=== PATIENT | female | born 1990 | race African-American/Black ===

== ENCOUNTER 2020-10-21 14:02 | Emergency (ER) | payer OTHER ==
[2020-10-21 16:28] LABS: Absolute Lymphocytes (CBC) 1.7 K/uL (0.7-4.9); Hematocrit 38.1 % (36.0-45.0); MPV 10.8 fL (7.6-11.3); RBC Red Blood Cell Count 3.98 M/uL (3.86-4.86)
[2020-10-21] MEDS ORDERED: MORPHINE 4 MG/ML SYR ONE ×2 (16:29→18:18)
[2020-10-21] MEDS ORDERED: ONDANSETRON 4 MG/2 ML VIAL ONE (16:30)
[2020-10-21 16:48] LABS: ALT/SGPT 19 U/L (12-78); AST/SGOT 18 U/L (15-37); Albumin 4.1 g/dL (3.4-5.0); Alkaline Phosphatase 106 U/L (45-117); BUN Blood Urea Nitrogen 8 mg/dL (7-18); Bicarbonate 21 mmol/L (21-32); Bilirubin Direct 0.2 mg/dL (0-0.2); Bilirubin Total 1.2 mg/dL (0.2-1.0); Glucose Level 92 mg/dL (74-106); Lipase 26 U/L (73-393); Potassium 3.4 mmol/L (3.5-5.1); Protein, Total 8.5 g/dL (6.4-8.2); Sodium Level 137 mmol/L (136-145)
[2020-10-21] MEDS ORDERED: METHYLPREDNISOLONE 125 MG INJ ONE (18:02)
[2020-10-21] MEDS ORDERED: DIPHENHYDRAMINE 50 MG/ML VIAL ONE (18:02)
[2020-10-21 18:13] LABS: Urine Blood NEGATIVE (NEG); Urine Glucose NEGATIVE (NEG); Urine Protein 1+ (NEG)
--- NOTE | 2020-10-21 18:29 | RAD REPORT ---
EXAM DESCRIPTION: CT - Abdomen Pelvis W Contrast - 10/21/2020 6:04 pm CLINICAL HISTORY: Abdominal pain COMPARISON: none. TECHNIQUE: Computed axial tomography of the abdomen pelvis was obtained. 100 cc Isovue-300 was admin istered intravenously. Oral contrast was not requested which limits evaluation of bowel. All CT scans are performed using dose optimization technique as appropriate and may include automated exposure control or mA/KV adjustment according to patient size. FINDINGS: A 3 millimeter nodule right lower lobe. The liver, spleen, pancreas, adrenal and kidneys appear unremarkable. There is no evidence of diverticulitis. Diastases of the rectus abdominis muscle sheath 5 centimeters Mild dilatation of several loops of jejunum remainder of the bowel caliber is normal. IMPRESSION: Mild dilatation of several loops of jejunum may indicate an enteritis 3 millimeter right lower lobe nodule. If the patient is high risk then followup CT chest in 6 months would be recommended
--- NOTE | 2020-10-21 19:00 | ER ---
Nurse's Notes [facility] Name: John Campos Age: 29 yrs Sex: Female : 1990 Arrival Date: 10/21/2020 Time: 14:04 Bed 25 Private MD: Diagnosis: Alcohol-induced chronic pancreatitis;Enteritis;Urinary tract infection, site not specified Presentation: 10/21 14:23 Chief complaint: Patient states: LUQ abd pain with N/V/D for 2 days. No fever. States ll1 its a pancreatitis flare-up. Coronavirus screen: Client denies travel out of the [place] in the last 14 days. At this time, the client does not indicate any symptoms associated with coronavirus-19. Ebola Screen: Patient denies travel to an Ebola-affected area in the 21 days before illness onset. Initial Sepsis Screen: Does the patient meet any 2 criteria? HR > 90 bpm. No. Patient's initial sepsis screen is negative. Does the patient have a suspected source of infection? Yes: Acute abdominal pain. Risk Assessment: Do you want to hurt yourself or someone else? Patient reports no desire to harm self or others. Onset of symptoms was September 22, 2020. 14:23 Method Of Arrival: Ambulatory ll1 14:23 Acuity: CALEB 3 ll1 Historical: - Allergies: 14:23 Iodine; ll1 - PMHx: 14:23 Pancreatitis; ll1 - PSHx: 14:23 Cholecystectomy; Appendectomy; ll1 - Immunization history:: Flu vaccine is not up to date. - Social history:: Smoking status: Patient reports the use of cigarette tobacco products, smokes one-half pack cigarettes per day. Screenin:17 Abuse screen: Denies threats or abuse. Denies injuries from another. Nutritional hb screening: No deficits noted. Tuberculosis screening: No symptoms or risk factors identified. Fall Risk None identified. Assessment: 16:02 General: Appears uncomfortable, Behavior is cooperative, crying. Pain: Pain currently hb is 9 out of 10 on a pain scale. 16:02 Neuro: Level of Consciousness is awake, alert, obeys commands, Oriented to person, hb place, time, situation. Cardiovascular: Capillary refill < 3 seconds Patient's skin is warm and dry. Respiratory: Respiratory effort is even, unlabored, Respiratory pattern is regular, symmetrical. GI: Reports upper abdominal pain. : No signs and/or symptoms were reported regarding the genitourinary system. EENT: No signs and/or symptoms were reported regarding the EENT system. Derm: Skin is pink, warm \T\ dry. Musculoskeletal: No signs and/or symptoms reported regarding the musculoskeletal system. 16:52 Reassessment: Patient appears in no apparent distress at this time. Patient and/or hb family updated on plan of care and expected duration. Pain level reassessed. Patient is alert, oriented x 3, equal unlabored respirations, skin warm/dry/pink. 17:40 Reassessment: Patient appears in no apparent distress at this time. Patient and/or hb family updated on plan of care and expected duration. Pain level reassessed. Patient is alert, oriented x 3, equal unlabored respirations, skin warm/dry/pink. 18:31 Reassessment: Patient appears in no apparent distress at this time. Patient and/or hb family updated on plan of care and expected duration. Pain level reassessed. Patient is alert, oriented x 3, equal unlabored respirations, skin warm/dry/pink. Vital Signs: 14:23 BP 155 / 105; Pulse 100; Resp 17; Temp 97.9; Pulse Ox 99% ; Weight 73.48 kg; Height 5 ll1 ft. 4 in. (162.56 cm); Pain 10/10; 16:00 BP 134 / 77; Pulse 68; Resp 16; Pulse Ox 99% on R/A; hb 17:30 BP 122 / 71; Pulse 68; Resp 15; Pulse Ox 99% on R/A; hb 18:30 BP 128 / 74; Pulse 70; Resp 16; Pulse Ox 99% on R/A; hb 14:23 Body Mass Index 27.81 (73.48 kg, 162.56 cm) ll1 ED Course: 14:04 Patient arrived in ED. am2 14:22 Arm band placed on. ll1 14:24 Triage completed. ll1 15:51 Akil Moreau PA is PHCP. jr8 15:51 Salazar Vivar MD is Attending Physician. jr8 16:02 Luna Murray RN is Primary Nurse. hb 16:12 Inserted saline lock: 22 gauge in left antecubital area, using aseptic technique. Blood hb collected. 16:17 Patient has correct armband on for positive identification. Placed in gown. Bed in low hb position. Call light in reach. 16:23 Basic Metabolic Panel Sent. sv 16:23 CBC with Diff Sent. sv 16:23 Hepatic Function Sent. sv 16:23 Lipase Sent. sv 18:59 Abdi Pham MD is Referral Physician. jr8 Administered Medications: 16:16 Drug: morphine 4 mg Route: IVP; Site: left antecubital; hb 17:00 Follow up: Response: No adverse reaction hb 16:16 Drug: Zofran (Ondansetron) 4 mg Route: IVP; Site: left antecubital; hb 17:00 Follow up: Response: No adverse reaction hb Outcome: 19:00 Discharge ordered by . kirill 19:10 Patient left the ED. hb Signatures: Isabela Hills, RN RN Akil Moreau PA PA jr8 Luna Murray RN RN Nelsy Del Castillo am2 Miguel Ángel Rider RN RN ll1
--- NOTE | 2020-10-21 19:01 | EDPHYS ---
Physician Documentation [facility] Name: John Campos Age: 29 yrs Sex: Female : 1990 Arrival Date: 10/21/2020 Time: 14:04 Bed 25 Private MD: ED Physician Salazar Vivar HPI: 10/21 16:23 This 29 yrs old Black Female presents to ER via Ambulatory with complaints of Abdominal jr8 Pain, pancreatitis flare up. 16:23 The patient presents with abdominal pain in the upper abdomen, in the left upper jr8 quadrant. 16:24 Onset: The symptoms/episode began/occurred suddenly, today, and became worse today, jr8 With ETOH ingestion . The symptoms do not radiate. Associated signs and symptoms: Pertinent positives: nausea and vomiting. The symptoms are described as constant, stabbing. The patient has experienced similar episodes in the past, chronically. Patient reports she has pancreatitis as she has had many episodes in the past brought on by ETOH. She reports N/V clear in color. . Historical: - Allergies: 14:23 Iodine; ll1 - PMHx: 14:23 Pancreatitis; ll1 - PSHx: 14:23 Cholecystectomy; Appendectomy; ll1 - Immunization history:: Flu vaccine is not up to date. - Social history:: Smoking status: Patient reports the use of cigarette tobacco products, smokes one-half pack cigarettes per day. ROS: 16:26 Cardiovascular: Negative for chest pain, palpitations, and edema, Respiratory: Negative jr8 for shortness of breath, cough, wheezing, and pleuritic chest pain, Back: Negative for injury and pain, MS/Extremity: Negative for injury and deformity, Skin: Negative for injury, rash, and discoloration, Neuro: Negative for headache, weakness, numbness, tingling, and seizure. 16:26 Abdomen/GI: Positive for abdominal pain, nausea and vomiting. Exam: 16:26 Chest/axilla: Normal chest wall appearance and motion. Nontender with no deformity. jr8 No lesions are appreciated. Cardiovascular: Regular rate and rhythm with a normal S1 and S2. No gallops, murmurs, or rubs. Normal PMI, no JVD. No pulse deficits. Respiratory: Lungs have equal breath sounds bilaterally, clear to auscultation and percussion. No rales, rhonchi or wheezes noted. No increased work of breathing, no retractions or nasal flaring. Neuro: Awake and alert, GCS 15, oriented to person, place, time, and situation. Cranial nerves II-XII grossly intact. Motor strength 5/5 in all extremities. Sensory grossly intact. Cerebellar exam normal. Normal gait. 16:26 Abdomen/GI: Inspection: distension, that is moderate, in the right upper quadrant, left upper quadrant, right lower quadrant and left lower quadrant, Bowel sounds: normal, in all quadrants, Palpation: nontender, in the right upper quadrant, right lower quadrant and left lower quadrant, moderate abdominal tenderness, in the left upper quadrant, involuntary guarding, is elicited in the right upper quadrant and left upper quadrant, Indicators: McBurney's point is not tender, Acosta's sign is negative, Liver: tenderness, is not appreciated. Vital Signs: 14:23 BP 155 / 105; Pulse 100; Resp 17; Temp 97.9; Pulse Ox 99% ; Weight 73.48 kg; Height 5 ll1 ft. 4 in. (162.56 cm); Pain 10/10; 16:00 BP 134 / 77; Pulse 68; Resp 16; Pulse Ox 99% on R/A; hb 17:30 BP 122 / 71; Pulse 68; Resp 15; Pulse Ox 99% on R/A; hb 18:30 BP 128 / 74; Pulse 70; Resp 16; Pulse Ox 99% on R/A; hb 14:23 Body Mass Index 27.81 (73.48 kg, 162.56 cm) ll1 MDM: 15:51 Patient medically screened. [facility] 16:27 Data reviewed: vital signs, nurses notes, lab test result(s), amylase and lipase, jr8 electrolytes, urinalysis. Data interpreted: monitoring manager: rate is 100 beats/min, rhythm is normal sinus rhythm, Pulse oximetry: on room air is 99 %. Interpretation: normal. 18:58 Counseling: I had a detailed discussion with the patient and/or guardian regarding: the 8 historical points, exam findings, and any diagnostic results supporting the discharge/admit diagnosis, lab results, radiology results, the need for outpatient follow up, a family practitioner, to return to the emergency department if symptoms worsen or persist or if there are any questions or concerns that arise at home. Response to treatment: the patient's symptoms have mildly improved after treatment. Special discussion: Based on the patient's Hx, exam, and Dx evaluation, there is no indication for emergent surgery or inpatient Tx. It is understood by the patient/guardian that if the Sx's persist or worsen they need to return immediately for re-evaluation. 10/21 15:51 Order name: Basic Metabolic Panel [facility] 10/21 15:51 Order name: CBC with Diff [facility] 10/21 15:51 Order name: Hepatic Function [facility] 10/21 15:51 Order name: Lipase [facility] 10/21 16:30 Order name: CBC with Automated Diff; Complete Time: 16:33 [facility] 10/21 16:48 Order name: Basic Metabolic Panel; Complete Time: 17:02 [facility] 10/21 16:48 Order name: Liver (Hepatic) Function; Complete Time: 17:02 [facility] 10/21 16:48 Order name: Lipase; Complete Time: 17:02 [facility] 10/21 17:45 Order name: Abdomen ; Complete Time: 18:58 [facility] 10/21 17:49 Order name: Urine Dipstick-Ancillary; Complete Time: 18:16 [facility] 10/21 17:49 Order name: Urine Culture [facility] 10/21 17:49 Order name: Urine Microscopic Only [facility] 10/21 17:49 Order name: Urine --Ancillary [facility] 10/21 15:51 Order name: IV Saline Lock; Complete Time: 16:16 [facility] 10/21 15:51 Order name: Labs collected and sent; Complete Time: 16:16 jr Administered Medications: 16:16 Drug: morphine 4 mg Route: IVP; Site: left antecubital; hb 17:00 Follow up: Response: No adverse reaction hb 16:16 Drug: Zofran (Ondansetron) 4 mg Route: IVP; Site: left antecubital; hb 17:00 Follow up: Response: No adverse reaction hb Disposition: 10/22 07:22 Co-signature as Attending Physician, Salazar Vivar MD I agree with the assessment and kdr plan of care. Disposition: 10/21/20 19:00 Discharged to Home. Impression: Alcohol-induced chronic pancreatitis, Enteritis, Urinary tract infection, site not specified. - Condition is Stable. - Discharge Instructions: Urinary Tract Infection, Adult, Chronic Pancreatitis. - Prescriptions for Bentyl 20 mg Oral Tablet - take 1 tablet by ORAL route every 6 hours As needed; 20 tablet. Zofran 4 mg Oral Tablet - take 1 tablet by ORAL route every 12 hours As needed; 20 tablet. Macrobid 100 mg Oral Capsule - take 1 capsule by ORAL route every 12 hours for 7 days; 14 capsule. - Medication Reconciliation Form, Thank You Letter, Antibiotic Education, Prescription Opioid Use form. - Follow up: Abdi Pham MD; When: 2 - 3 days; Reason: Recheck today's complaints, Continuance of care, Re-evaluation by your physician. - Problem is new. - Symptoms have improved. Signatures: Dispatcher [employer] EDMS Salazar Vivar MD MD [facility] Akil Moreau PA PA jr8 Luna Murray RN RN Miguel Ángel Rider RN RN ll1 Corrections: (The following items were deleted from the chart) 10/21 17:09 16:26 Abdomen/GI: Inspection: distension, that is moderate, in the right upper jr8 quadrant, left upper quadrant, right lower quadrant and left lower quadrant, Bowel sounds: normal, in all quadrants, Palpation: moderate abdominal tenderness, in the left upper quadrant, involuntary guarding, is elicited in the right upper quadrant and left upper quadrant, jr8 19:10 19:00 10/21/2020 19:00 Discharged to Home. Impression: Alcohol-induced chronic hb pancreatitis; Enteritis; Urinary tract infection, site not specified. Condition is Stable. Forms are Medication Reconciliation Form, Thank You Letter, Antibiotic Education, Prescription Opioid Use. Follow up: Abdi Pham; When: 2 - 3 days; Reason: Recheck today's complaints, Continuance of care, Re-evaluation by your physician. Problem is new. Symptoms have improved. jr8
[2020-10-21 19:34] LABS: Urine Bacteria <20 /HPF (<20); Urine RBC <5 /HPF (NONE SEEN)
[2020-10-22 10:21] VITALS: BP 128/74; TEMP 97.9; O2SAT 99
== END 2020-10-21 19:10 | disposition home or self-care (01) ==
LOC: ER 14:02
DX: K86.0 Alcohol-induced chronic pancreatitis (principal); N39.0 Urinary tract infection, site not specified; K52.9 Noninfective gastroenteritis and colitis, unspecified; F17.210 Nicotine dependence, cigarettes, uncomplicated; Z91.048 Other nonmedicinal substance allergy status
CPT/HCPCS: 87088; 85025; 87086; 80048; 36415; 81025; 80076; 83690; 74177; 96375; 96374; 99283; Q9967; J1200; J2930; J2405; 81003; 81015